=== PATIENT | male | born 2000 | race Two or more races ===

== ENCOUNTER 2019-02-18 11:26 | Emergency (ER) | payer OTHER ==
[~2019-02-18] VITALS: Ht 175.3 cm; Wt 63.3 kg
[2019-02-18 11:34] VITALS: BP 114/66
[2019-02-18] MEDS ORDERED: ibuprofen tablet 400 MG TABLET PO ONE (12:25)
--- NOTE | 2019-02-18 12:25 | NUR ---
Pt refused the flu swab and the throat swab. States "I'm fine" and "I just want to go home".
[2019-02-18] MEDS ORDERED: ibuprofen 200mg tablet PO ONE (12:30)
--- NOTE | 2019-02-18 12:33 | NUR ---
Provider notified that pt refuses meds and tests and only wants work note. Orders cancelled.
== END 2019-02-18 13:19 | disposition home or self-care (01) ==
LOC: ER 11:27
DX: J06.9 Acute upper respiratory infection, unspecified (principal); Z88.0 Allergy status to penicillin
CPT/HCPCS: 99281